=== PATIENT | female | born 1995 | race Caucasian/White ===

== ENCOUNTER 2018-05-08 20:40 | Emergency (ER) | payer MEDICAID ==
[~2018-05-08] VITALS: Ht 160 cm; Wt 63.0 kg
[2018-05-08] MEDS ORDERED: IBUPROFEN 600MG TABLET PO ONE (22:30)
[2018-05-09 01:25] VITALS: BP 106/55
== END 2018-05-09 01:25 | disposition home or self-care (01) ==
LOC: ER 20:40
DX: S93.601A Unspecified sprain of right foot, initial encounter (principal); S93.401A Sprain of unspecified ligament of right ankle, initial encounter; W17.89XA Other fall from one level to another, initial encounter; Y93.89 Activity, other specified; Y92.89 Other specified places as the place of occurrence of the external cause
CPT/HCPCS: 29515; 73610; 73630; 81025; 82962; 99284